=== PATIENT | female | born 1945 | race Two or more races ===

== ENCOUNTER → 2019-07-02 | Outpatient (CLI) | payer MEDICAID ==
[~2019-07-02] MED LIST: IOHEXOL 240 MG/ML 50ML VIAL. PO ONE; IOHEXOL 300 MG/ML 100ML VIAL. IV ONE
--- NOTE | 2019-07-02 16:21 | KCIC ---
PQRS Compliance statement: One or more of the following individualized dose reduction techniques were utilized for this examination: 1. Automated exposure control. 2. Adjustment of the mA and/or kV according to patient size. 3. Use of iterative reconstruction technique. Indication:Abdominal and pelvic pain. Left lower quadrant pain. Suprapubic pain. TECHNIQUE: CT abdomen and pelvis with IV contrast with multiplanar reformats. COMPARISON: None FINDINGS: Heart is normal in size. No pericardial or pleural effusion. Clear base. Liver, spleen, adrenals within normal limits. Status post cholecystectomy. Diffuse fatty infiltration of the pancreas noted. No nephrolithiasis or hydronephrosis. No free pelvic fluid or ascites. No enlarged retroperitoneal lymph nodes. Mildly enlarged right external iliac chain lymph node measuring 1.8 x 1.3 cm. Multiple shotty lymph nodes in the right lower quadrant. No bowel obstruction. Status post hysterectomy. Urinary bladder demonstrates no radiopaque stone. No suspicious bony lesion. Status post posterior fusion at L3-L5. IMPRESSION: 1. No bowel obstruction. 2. Mildly enlarged right external iliac chain lymph node in shotty right lower quadrant lymph nodes, nonspecific may be reactive. Electronically signed by: Bebeto Sauer DO (07/02/2019 4:18 PM) [id number]
== END | disposition home or self-care (01) ==
LOC: KCIC CT 09:16
DX: R59.0 Localized enlarged lymph nodes (principal); K86.89 Other specified diseases of pancreas; Z90.49 Acquired absence of other specified parts of digestive tract; Z98.1 Arthrodesis status; Z88.5 Allergy status to narcotic agent
CPT/HCPCS: 74177; Q9966; Q9967

== ENCOUNTER → 2019-08-01 | Outpatient (CLI) | payer MEDICAID ==
--- NOTE | 2019-08-01 14:38 | KCIC ---
EXAM: Pelvic sonogram. HISTORY: Pelvic pain. Ovarian and uterine cancer. TECHNIQUE: Transabdominal and transvaginal sonographic imaging of the pelvis was performed. COMPARISON: CT dated 07/02/2019. FINDINGS: The uterus is surgically absent. The left ovary is surgically absent. The right ovary is normal in size and demonstrate normal blood flow. There are a few small suspected right ovarian calcifications. There is no pelvic free fluid. IMPRESSION: 1. Surgically absent uterus and left ovary. 2. No suspicious adnexal mass or cyst. Electronically signed by: Macey Mendez MD (08/01/2019 2:35 PM) [place] [id number]
== END | disposition home or self-care (01) ==
LOC: KCIC US 11:55
DX: R10.2 Pelvic and perineal pain (principal); Z90.710 Acquired absence of both cervix and uterus; Z85.42 Personal history of malignant neoplasm of other parts of uterus
CPT/HCPCS: 76830; 76856